=== PATIENT | female | born 1995 | race Two or more races ===

== ENCOUNTER 2024-09-30 14:55 | Emergency (ER) | payer OTHER ==
[~2024-09-30] VITALS: Ht 154.9 cm; Wt 50.8 kg
[~2024-09-30 14:55] MED LIST: ACIDOPHILUS1 EAC1 PO; AMOX1TAB12 PO; RELAGESIC 5001 EACH PO
[2024-09-30] MEDS ORDERED: ACETAMINOPHEN 500 MG GEL..CAP PO ONE (16:40)
[2024-09-30] MEDS ORDERED: FAMOTIDINE/PF 20 MG/2 ML VIAL ONE (16:40)
[2024-09-30] MEDS ORDERED: ONDANSETRON HCL 2 MG/ML VIAL ONE (16:40)
[2024-09-30] MEDS ORDERED: ONDANSETRON HCL 2 MG/ML VIAL IV ONE (16:45)
[2024-09-30] MEDS ORDERED: FAMOtidine 10 MG/ML (4ML VIAL) IV ONE (16:45)
[2024-09-30] MEDS ORDERED: 0.9 % SODIUM CHLORIDE 1,000 ML IV ONE ×2 (16:45→19:45)
[2024-09-30] MEDS ORDERED: ACETAMINOPHEN 325 MG TABLET PO ONE ×2 (16:45→18:07)
[2024-09-30 17:43] LABS: HEMATOCRIT 37.6 % (36.0-45.00); HEMOGLOBIN 12.7 g/dL (12.0-15.00); MEAN CORPUSCULAR HEMOGLOBIN 30.6 pg (27.00-32.0); MEAN CORPUSCULAR HGB CONC 33.7 g/dl (32.0-36.0); PLATELET COUNT 181 K/uL (150-450); RED BLOOD COUNT 4.13 M/uL (4.00-6.00); RED CELL DISTRIBUTION WIDTH 13.1 % (11.5-14.5)
[2024-09-30 18:06] LABS: INR 1.06; PARTIAL THROMBOPLASTIN TIME 31.1 SECONDS (22.0-34.0); PROTHROMBIN TIME 11.5 SECONDS (9.0-11.5)
[2024-09-30] MEDS ORDERED: PEPCID AC20 MG PO (19:27)
[2024-09-30] MEDS ORDERED: ZOFRAN8 MG PO (19:27)
[2024-09-30] MEDS ORDERED: OSEL75CA PO (19:27)
== END 2024-09-30 19:57 | disposition home or self-care (01) ==
LOC: ER 14:57
PROVIDERS: General Practice
DX: R53.81 Other malaise (principal); J10.1 Influenza due to other identified influenza virus with other respiratory manifestations; Z20.822 Contact with and (suspected) exposure to COVID-19; Z88.1 Allergy status to other antibiotic agents